=== PATIENT | female | born 1965 | race Caucasian/White ===

== ENCOUNTER 2018-08-12 06:12 | Observation (INO) | payer OTHER ==
[2018-08-11 13:51] LABS: BASOPHILS # (AUTO) 0.1 (0.0-0.1); BASOPHILS % 0.8 % (0.0-1.0); EOSINOPHILS # (AUTO) 0.1 (0.0-0.4); EOSINOPHILS % 2.4 % (0.0-6.0); HEMATOCRIT 37.6 % (34.2-44.1); HEMOGLOBIN 12.6 g/dL (12.0-16.0); LYMPHOCYTES # (AUTO) 2.3 (1.0-3.2); LYMPHOCYTES % 38.3 % (18.0-39.1); MEAN CORPUSCULAR HEMOGLOBIN 28.8 pg (28-32); MEAN CORPUSCULAR HGB CONC 33.5 g/dL (31-35); MONOCYTES # (AUTO) 0.5 (0.2-0.8); MONOCYTES % 9.1 % (4.4-11.3); NEUTROPHILS # (AUTO) 2.9 (2.1-6.9); NEUTROPHILS % 49.1 % (38.7-80.0); PLATELET COUNT 257 x10e3/uL (140-360); RED BLOOD COUNT 4.37 x10e6/uL (3.6-5.1); RED CELL DISTRIBUTION WIDTH 12.7 % (11.7-14.4)
[2018-08-11 14:03] LABS: INR 0.94; PROTHROMBIN TIME 13.4 seconds (11.9-14.5)
[2018-08-11 14:04] LABS: PARTIAL THROMBOPLASTIN TIME 28.2 seconds (23.8-35.5)
[2018-08-11 14:07] LABS: ANION GAP 12.8 mmol/L (8-16); BLOOD UREA NITROGEN 16 mg/dL (7-26); BUN/CREATININE RATIO 18 (6-25); CALCIUM 9.5 mg/dL (8.4-10.2); CARBON DIOXIDE 29 mmol/L (22-29); CHLORIDE 99 mmol/L (98-107); CREATININE, SERUM 0.88 mg/dL (0.57-1.11); EST GLOMERULAR FILTRATION RATE > 60 ML/MIN (60-); GLUCOSE 100 mg/dL (74-118); SODIUM 138 mmol/L (136-145)
[2018-08-11 14:13] LABS: POTASSIUM 2.8 mmol/L (3.5-5.1)
--- NOTE | 2018-08-11 14:35 | Diagnostic Imaging Report ---
EXAMINATION: PA and lateral views of the chest. COMPARISON: None CLINICAL HISTORY: Preoperative study DISCUSSION: Lungs are well-inflated. No consolidation, pleural effusion, or pneumothorax. Cardiomediastinal contour and pulmonary vasculature are within normal limits. No acute osseous abnormality. Circular radiodensity projecting over the lateral aspect of the left lung base likely lies within the soft tissues of the chest wall. IMPRESSION: No acute cardiopulmonary abnormalities. Signed by: Dr. Alexander Sams M.D. on 08/11/2018 2:06 PM
[~2018-08-12] VITALS: Ht 160 cm; Wt 70.8 kg
[~2018-08-12 06:12] MED LIST: CELEBREX200 MG PO; CYMBALTA30 MG PO; HYDROXYCHLOROQ200 MG PO; METAXALONE800 MG PO; TRIAMTERENE-HC1 EAC1 PO
--- OUTSIDE RECORDS SUMMARY | 2018-08-12 06:16 | XMS REPORT | Continuity of Care Document ---
Author Author [facility] Interface Address Unknown Phone Unavailable Problems Problem Status Onset Date Classification Date Reported Comments Source Epigastric pain 12/18/2017 03/20/2018 [facility] DX: R10.13=EPIGASTRIC PAIN/ABNORMAL FIND Active 12/04/2017 [facility] ABDOMINAL PAIN Active 11/02/2017 [facility] DX: 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 Active 10/15/2016 [facility] R10.9 Active 11/30/2015 [facility] Nausea 03/20/2018 [facility] Constipation, unspecified 03/20/2018 [facility] Hemangioma of other sites 03/20/2018 [facility] Personal history of colonic polyps 03/20/2018 [facility] Acquired absence of other specified parts of digestive tract 03/20/2018 [facility] Acne Resolved Problem 03/20/2018 [facility] ADD (<span ID="[id number]">Confirmed</span>) Resolved Problem 03/20/2018 [facility] Back pain Resolved Problem 03/20/2018 [facility] Acid reflux Resolved Problem 03/20/2018 [facility] 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 03/20/2018 [facility] High cholesterol Resolved Problem 03/20/2018 [facility] Hypothyroidism Resolved Problem 03/20/2018 [facility] Bladder infection Resolved Problem 03/20/2018 [facility] Depression Resolved Problem 03/20/2018 [facility] Kidney infection Resolved Problem 03/20/2018 [facility] UTI (<span ID="[id number]">Confirmed</span>) Resolved Problem 03/20/2018 [facility] Medications Medication Details Route Status Patient Instructions Ordering Provider Order Date Source Allergies, Adverse Reactions, Alerts Substance Category Reaction Severity Reaction type Status Date Reported Comments Source codeine Assertion Drug allergy Active [facility] Immunizations Immunization Date Given Site Status Last Updated Comments Source Results Order Name Results Value Reference Range Date Interpretation Comments Source CHEM PANEL eGFR 47 mL/min/1.73m2 12/13/2017 Result Comment: The eGFR is calculated using the CKD-EPI formula. In most young, healthy individuals the eGFR will be >90 mL/min/1.73m2. The eGFR declines with age. An eGFR of 60-89 may be normal in some populations, particularly the elderly, for whom the CKD-EPI formula has not been extensively validated. Use of the eGFR is not recommended in the following populations: Individuals with unstable creatinine concentrations, including patients and those with serious co-morbid conditions. Patients with extremes in muscle mass or diet. The data above are obtained from the National Kidney Disease Education Program (NKDEP) which additionally recommends that when the eGFR is used in patients with extremes of body mass index for purposes of drug dosing, the eGFR should be multiplied by the estimated BMI. [facility] CHEM PANEL POC Creatinine 1.3 mg/dL 0.5 - 1.4 12/13/2017 [facility] Abdomen w/wo contrast MRI Abdomen w/wo contrast MRI EXAM: MRI abdomen, MRCP HISTORY: Epigastric pain, nausea TECHNIQUE: Axial and coronal images obtained of the abdomen and biliary tree utilizing relative T1 and T2 weighting without and with contrast FINDINGS: Biliary tree: Cholecystectomy. No biliary dilation or stone is seen. Pancreas: Unremarkable. Other solid organs: Tiny cyst right hepatic lobe. The spleen, kidneys, and adrenal glands are unremarkable. PERITONEUM AND RETROPERITONEUM: No bulky adenopathy or free fluid. BONES: Hemangioma mid thoracic vertebral body. IMPRESSION: 1. No acute finding. 2. Cholecystectomy. SL 14 12/12/2017 - - Read by: Gamal Domingo MD Dictated Date/time: 12/12/17 23:05 Electronically Signed by: Gamal Domingo MD 12/13/17 07:35 FINAL REPORT [facility] ED Abdomen/Pelvis IV contrast only CT ED Abdomen/Pelvis IV contrast only CT Clinical Indication: Abdominal pain, acute - epigastric abdominal pain Comparison: None TECHNIQUE: Helical imaging was performed diaphragm through the symphysis with multiplanar reformations obtained. IV CONTRAST: 100cc Omnipaque 300 GI CONTRAST: No CT Radiation Dose: CYN=1297.66 mGy-cm FINDINGS: LOWER CHEST: The lung bases are clear. SOLID ORGANS: Gallbladder is surgically absent. Minimal pneumobilia incidentally noted. Liver, spleen, pancreas, adrenal glands and kidneys are unremarkable. BOWEL: Stomach and small bowel are within normal limits. The appendix is is not clearly visualized. Moderate colonic stool burden. No acute bowel obstruction. No inflammatory change. PERITONEUM: No free intraperitoneal fluid or air. RETROPERITONEUM: No pathologic adenopathy. The aorta is normal in caliber. PELVIS: No pelvic mass. The urinary bladder is normal. MUSCULOSKELETAL: No acute osseous abnormality. IMPRESSION: 1. Moderate colonic stool burden. Correlate clinically for constipation. 2. Cholecystectomy with minimal pneumobilia. 3. Otherwise no acute process identified in the abdomen or pelvis. SL: [id number] 11/02/2017 - - Read by: Real Parham MD Dictated Date/time: 11/02/17 09:46 Electronically Signed by: Real Parham MD 11/02/17 09:48 FINAL REPORT [facility] Vital Signs Vital Sign Value Date Comments Source Encounters Location Location Details Encounter Type Encounter Number Reason For Visit Attending Provider ADM Date DC Date Status Source Outpatient [id number] [facility] 07/03/2015 [facility] Outpatient [id number] [facility] 11/30/2015 [facility] Outpatient [id number] [facility] PROC ROOM 3 VISIT 11/30/2015 [facility] Outpatient [id number] CLINICAL PATH LAB VISIT 10/09/2016 [facility] Outpatient [id number] [facility] 10/27/2016 [facility] Outpatient [id number] [facility] 11/26/2016 [facility] Outpatient [id number] Porfirio Gogia 12/13/2017 12/13/2017 [facility] Procedures Procedure Code Date Perfomer Comments Source Breast procedure [id number] [facility] Cholecystocecostomy [id number] [facility] Hysterectomy [id number] [facility]
--- OUTSIDE RECORDS SUMMARY | 2018-08-12 06:16 | XMS REPORT | Clinical Summary ---
Author Author [facility] Address Unknown Phone Unavailable Care Team Providers Care Volunteer Recruitment Coordinator Name Role Phone Stephie Rodríguez MD PCP Allergies Active Allergy Reactions Severity Noted Date Comments Codeine Swelling 01/22/2017 TONGUE SWELLING Current Medications Prescription Sig. Disp. Refills Start End Date Status Date dextroamphetamine-ampheta Take 20 mg by mouth Active mine (ADDERALL) 20 mg daily. tablet thyroid, pork, (ARMOUR Take by mouth. Active THYROID) 15 mg tablet triamterene-hydrochloroth Take 1 tablet by mouth Active iazid (MAXZIDE) 75-50 mg daily. per tablet Active Problems Problem Noted Date Left upper quadrant pain 01/22/2017 Encounters Date Type Specialty Care Team Description 03/25/2018 Telephone Gastroenterology Alesha Velazco MA after 08/11/2017 Family History Medical History Relation Name Comments Diabetes Brother Cancer Father Diabetes Father Lung cancer Father Cancer Mother Ovarian cancer Mother Relation Name Status Comments Brother Father Mother Social History Tobacco Use Types Packs/Day Years Used Date Never Smoker Alcohol Use Drinks/Week oz/Week Comments Yes occasionally Sex Assigned at Date Recorded Not on file Last Filed Vital Signs Not on file Plan of Treatment Health Maintenance Due Date Last Done Comments CERVICAL CANCER SCREENING 1986 BREAST CANCER SCREENING 2015 SHINGRIX VACCINE (#1) 2015 INFLUENZA VACCINE 05/12/2018 COLON CANCER SCREENING 01/23/2020 01/22/2017 Results Not on fileafter 08/11/2017 Insurance Payer Benefit Subscriber ID Type Phone Address Plan / Group [facility] xxxxxxxxx HMO/PPO THCARE CHOICE/CHO ICE + Home: [address] [place] [id number]
--- OUTSIDE RECORDS SUMMARY | 2018-08-12 06:16 | XMS REPORT ---
[facility] Address Unknown Phone Unavailable Care Team Providers Care Affiliate Manager Name Role Phone DYANA WARD Unavailable Unavailable Payers Payer Name Policy Type Policy Number Effective Date Expiration Date Problems This patient has no known problems. Allergies, Adverse Reactions, Alerts This patient has no known allergies or adverse reactions. Medications This patient has no known medications. Results Test Description Test Time Test Comments Text Results Atomic Results Result Comments CHEST 2 VIEWS 2018-08-11 14:05:00 [place] [address] Patient Name: AQUILINO GARZA MR #: [id number] : 1965 Age/Sex: 52/F Req #: [id number] [facility] Physician: Ordered by: DYANA WARD MD Report #: [id number] Location: OR Room/Bed: Procedure: [id number] DX/CHEST 2 VIEWS Exam Date: 08/11/18 Exam Time: 1345 REPORT STATUS: Signed EXAMINATION: PA and lateral views of the chest. EMILY RISON: None CLINICAL HISTORY: Preoperative study DISCUSSION: Lungs are well-inflated. No consolidation, pleural effusion, or pneumothorax. Cardiomediastinal contour and pulmonary vasculature are within normal limits. No acute osseous abnormality. Circular radiodensity projecting over the lateral aspect of the left lung base likely lies within the soft tissues of th e chest wall. IMPRESSION: No acute cardiopulmonary abnormalities. Signed by: Dr. Eriberto Baeza M.D. on 08/11/2018 2:06 PM Dictated By: ERIBERTO BAEZA MD 140 Transcribed By: TAYLER on 08/11/18 140 COPY TO: DYANA WARD MD
--- OUTSIDE RECORDS SUMMARY | 2018-08-12 06:16 | XMS REPORT | Summary of Care ---
Author Author [facility] Organization [facility] Address Unknown Phone Unavailable Encounter [facility]([place]) [id number] Date(s): 12/12/17 - 12/12/17 [facility] [address] [place] [address]- Encounter Diagnosis Epigastric pain (Final) - 12/17/17 Nausea (Final) - Constipation, unspecified (Final) - Hemangioma of other sites (Final) - Personal history of colonic polyps (Final) - Acquired absence of other specified parts of digestive tract (Final) - Discharge Disposition: Home or Self Care Attending Physician: Porfirio Nation MD Referring Physician: Porfirio Nation MD Vital Signs No data available for this section Problem List Condition Effective Dates Status Health Status Informant Acne(Confirmed) Resolved ADD (attention Resolved deficit disorder)(Confirmed) Back pain(Confirmed) Resolved Acid Resolved reflux(Confirmed) 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) High Resolved cholesterol(Confirme d) Hypothyroidism(Confi Resolved rmed) Bladder Resolved infection(Confirmed) Depression(Confirmed Resolved ) Kidney Resolved infection(Confirmed) UTI (urinary tract Resolved infection)(Confirmed ) Allergies, Adverse Reactions, Alerts Substance Reaction Severity Status codeine Active Medications No data available for this section Results CHEM PANEL Most recent to 1 oldest [Reference Range]: eGFR 47 mL/min/1.73m2 1 *NA* (12/12/17 8:23 PM) POC Creatinine 1.3 mg/dL [0.5-1.4 mg/dL] (12/12/17 8:23 PM) 1Result Comment: The eGFR is calculated using the [...] from the National Kidney Disease Education Program ( NKDEP) which additionally recommends that when the eGFR is used in patients with extremes of body mass index for purposes of drug dosing, the eGFR should be mul tiplied by the estimated BMI. Immunizations No data available for this section Procedures Procedure Date Related Diagnosis Body Site Status Breast procedure Completed Cholecystocecostomy Completed Hysterectomy Completed Social History Social History Type Response Smoking Status Never smoker; Exposure to Tobacco Smoke None; Cigarette Smoking Last 365 Days No; Reg Smoking Cessation Counseling No entered on: 11/02/17 Assessment and Plan No data available for this section
[2018-08-12] MEDS ORDERED: BUPIVACAINE 0.5%/EPI 30 ML SDV INJ ONE (06:42)
[2018-08-12] MEDS ORDERED: GELATIN SPONGE 12-7MM ONE (06:42)
[2018-08-12] MEDS ORDERED: THROMBIN FOR SOLN 5,000 UNIT VIAL ONE (06:42)
[2018-08-12] MEDS ORDERED: BACITRACIN 50,000 UNIT VIAL ONE (06:42)
[2018-08-12] MEDS ORDERED: LIDOCAINE HCL (LTA) 4 ML SOLN ONE (07:08)
[2018-08-12] MEDS ORDERED: ACETAMINOPHEN 1000 MG/100 ML 100 ML IV ONE (07:08)
[2018-08-12] MEDS ORDERED: CEFAZOLIN SOD 1 GM VIAL ONE (07:10)
[2018-08-12] MEDS ORDERED: SCOPOLAMINE 1.5 MG PATCH ONE (09:01)
[2018-08-12] MEDS ORDERED: LACTATED RINGER'S 1,000 ML IV SCH (10:04)
[2018-08-12] MEDS ORDERED: NON-FORMULARY MEDICATION (Celecoxib (Celebrex) 200 MG) PO SCH (10:15)
[2018-08-12] MEDS ORDERED: ONDANSETRON HCL INJ 2 MG/ML VIAL IV PRN (10:15)
[2018-08-12] MEDS ORDERED: MAGNESIUM/ALUMINUM/SIMETHICONE 30 ML UDC PO PRN (10:15)
[2018-08-12] MEDS ORDERED: CARISOPRODOL 350 MG TAB PO PRN (10:15)
[2018-08-12] MEDS ORDERED: MORPHINE SULFATE 5 MG/ML VIAL IM PRN (10:15)
[2018-08-12] MEDS ORDERED: CEPACOL SORE THROAT LOZENGES PO PRN (10:15)
[2018-08-12] MEDS ORDERED: ZOLPIDEM TARTRATE 5 MG TAB PO PRN (10:15)
[2018-08-12] MEDS ORDERED: PROMETHAZINE HCL (IM) 25 MG/ML VIAL IM PRN (10:15)
[2018-08-12] MEDS ORDERED: ACETAMINOPHEN 325 MG TAB PO PRN (10:15)
--- OUTSIDE RECORDS SUMMARY | 2018-08-12 10:19 | XMS REPORT | Clinical Summary ---
Author Author [facility] Address Unknown Phone Unavailable Care Team Providers Care Plate Keeper Name Role Phone Stephie Rodríguez MD PCP [...] ID Type Phone Address Plan / Group [facility] xxxxxxxxx HMO/PPO THCARE CHOICE/CHO ICE + Home: [address] [place] [id number]
[2018-08-12] MEDS ORDERED: FENTANYL CITRATE/PF 100MCG/2 ML INJ ONE ×2 (10:46→15:22)
[2018-08-12 11:44] VITALS: BP 109/59
--- NOTE | 2018-08-12 11:47 | Operative Report ---
DATE OF PROCEDURE: August 12, 2018 PREOPERATIVE DIAGNOSIS: Severe L4-L5 spinal stenosis with left L5 radiculopathy, M48.062. POSTOPERATIVE DIAGNOSIS: Severe L4-L5 spinal stenosis with left L5 radiculopathy, M48.062. PROCEDURES 1. L4 bilateral decompressive laminectomy and L4-5 bilateral medial facetectomy, 46509. 2. L5 bilateral partial decompressive laminectomy, 83657. ANESTHESIA: General. INDICATIONS: Patient is a 52-year-old woman who presents with severe L4-5 spinal stenosis with intractable left L5 radiculopathy. She was taken to the operating room for decompression of the L4-5 segment. PROCEDURE: After the induction of general anesthesia, the patient was placed on the operating table in prone position over a Gustavo frame. The lumbar region was prepped and draped in sterile fashion. A preoperative x-ray was obtained. A small midline incision was created. Lumbar fascia was opened along the midline, and dissection was carried out to expose the spinous processes and laminae of L4 and L5 and the medial aspect of the hypertrophic facet joints bilaterally. A 2nd x-ray confirmed correct localization. Portions of the spinous processes were resected. The Aesculap expandable speculum retractor was used to maintain retraction. The operating microscope was brought in. A high-speed drill equipped with a donaldo bur was used to drill the inferior two-thirds of the lamina of L4, the superior one-third of the lamina of L5 and the medial aspect of the hypertrophic L4-5 facet joints, with particular attention given to the left side. The markedly hypertrophic ligamentum flavum was resected, and the dural sac and the L5 traversing nerve roots were fully exposed and decompressed. On the nerve side, the nerve root was retracted medially, and the epidural veins were bipolar coagulated and divided with the microscissors. The underlying L4-5 disk was thoroughly examined. It had a very mild disk bulge, but there was no true disk herniation and no significant compression of the L5 nerve root from a ventral orientation. Therefore, a diskectomy was not performed. Excellent decompression had been achieved by virtue of the laminectomy. Meticulous hemostasis was secured. The wound was irrigated with Bacitracin solution and closed in multiple layers with #0 and 2-0 Vicryl sutures. The skin was closed with 3-0 Monocryl sutures in subcuticular fashion. Steri-Strips and dressing were applied. The patient was awakened, extubated and taken to the postanesthesia care unit in stable condition. No intraoperative complications were encountered. Estimated blood loss was 10 mL. Job#: [id number]
[2018-08-12 11:48] VITALS: BP 109/59
[2018-08-12] MEDS: HYDROMORPHONE 2MG/ML 2 MG/ML ML IV PRN ×2 (12:33→19:46)
[2018-08-12] MEDS ORDERED: CEFAZOLIN SOD 1 GM/D5W 50ML 50 ML IV SCH (14:00)
[2018-08-12 14:30] VITALS: BP 109/59
[2018-08-12] MEDS: CEFAZOLIN SOD 1 GM VIAL IV SCH ×2 (14:30→22:10)
[2018-08-12] MEDS ORDERED: MORPHINE SULFATE INJ 10 MG/ML IM PRN (15:00)
[2018-08-12] MEDS ORDERED: LIDOCAINE HCL 2% LOCAL INJ 5 ML SDV VIAL INJ ONE (15:22)
[2018-08-12] MEDS ORDERED: MIDAZOLAM HCL 2 MG/2 ML VIAL ONE (15:22)
[2018-08-12] MEDS ORDERED: ONDANSETRON HCL INJ 2 MG/ML VIAL ONE (15:22)
[2018-08-12] MEDS ORDERED: EPHEDRINE SULFATE INJ 50 MG/10 ML SYR ONE (15:22)
[2018-08-12] MEDS ORDERED: DESFLURANE 240 ML BTL INH ONE (15:22)
[2018-08-12] MEDS ORDERED: DEXAMETHASONE SOD PHOS INJ 4 MG/ML VIAL ONE (15:22)
[2018-08-12] MEDS ORDERED: PROPOFOL IV EMULSION 10 MG/ML 20 ML VIAL ONE (15:22)
[2018-08-12] MEDS ORDERED: ROCURONIUM BROMIDE 10 MG/ML 5ML VIAL ONE (15:22)
[2018-08-12 15:50] VITALS: BP 99/55
[2018-08-12 20:00] VITALS: BP 89/53
[2018-08-12] MEDS ORDERED: METAXALONE 800 MG TAB PO SCH (21:00)
[2018-08-12] MEDS: DIPHENHYDRAMINE HCL 25 MG CAP PO PRN (22:01)
[2018-08-12] MEDS: OXYCODONE/ACETAMINOPHEN 5-325 1 EACH TABLET PO PRN (23:41)
[2018-08-13] VITALS: BP 93/52
[2018-08-13] MEDS: OXYCODONE/ACETAMINOPHEN 5-325 1 EACH TABLET PO PRN (00:56)
[2018-08-13 04:00] VITALS: BP 92/53
[2018-08-13] MEDS: CEFAZOLIN SOD 1 GM VIAL IV SCH (06:03)
[2018-08-13] MEDS: HYDROMORPHONE 2MG/ML 2 MG/ML ML IV PRN (07:27)
[2018-08-13] MEDS ORDERED: NORCO 7.5-3251 EACH PO (07:56)
[2018-08-13 08:59] VITALS: BP 92/53
[2018-08-13] MEDS: DIPHENHYDRAMINE HCL 25 MG CAP PO PRN (08:59)
[2018-08-13] MEDS ORDERED: DIPHENHYDRAMINE HCL INJ 50 MG/ML VIAL IV NR (09:00)
[2018-08-13] MEDS ORDERED: TRIAMTERENE/HCTZ 37.5-25 MG TAB PO SCH (09:00)
[2018-08-13] MEDS ORDERED: HYDROXYCHLOROQUINE SULFATE 200 MG TAB PO SCH (09:00)
[2018-08-13] MEDS ORDERED: DULOXETINE HCL 30 MG DELAYED RELEASE PO SCH (09:00)
[2018-08-13] MEDS ORDERED: DIPHENHYDRAMINE HCL INJ 50 MG/ML VIAL IV PRN (09:00)
[2018-08-13 09:10] VITALS: BP 95/55
== END 2018-08-13 09:37 | disposition home or self-care (01) ==
LOC: OR 06:12 → PACU V 10:06 → MED/SURG 11:17
PROVIDERS: ADMIT Neurological Surgery; ATTEND Neurological Surgery
DX: M48.062 Spinal stenosis, lumbar region with neurogenic claudication (principal); Z01.810 Encounter for preprocedural cardiovascular examination; Z01.812 Encounter for preprocedural laboratory examination; Z01.811 Encounter for preprocedural respiratory examination
CPT/HCPCS: 36415 ×2; 63047; 63048; 71046; 72020; 80048; 84132; 85025; 85610; 85730; 86850; 86900; 88304; 88311; 93005; G0378 ×2; J0131; J0690 ×2; J1100; J1170 ×2; J1200; J2001; J2250; J2405 ×2; J2704; J7120; J2270

== ENCOUNTER → 2018-08-27 | Outpatient (CLI) | payer OTHER ==
[~2018-08-27] MED LIST changes: +NORCO 7.5-3251 EACH PO
[2018-08-27 17:25] LABS: HEMATOCRIT 33.5 % (34.2-44.1); HEMOGLOBIN 11.3 g/dL (12.0-16.0); MEAN CORPUSCULAR HEMOGLOBIN 28.8 pg (28-32); MEAN CORPUSCULAR HGB CONC 33.7 g/dL (31-35); MEAN CORPUSCULAR VOLUME 85.2 fL (81-99); PLATELET COUNT 268 x10e3/uL (140-360); RED BLOOD COUNT 3.93 x10e6/uL (3.6-5.1); RED CELL DISTRIBUTION WIDTH 12.5 % (11.7-14.4)
[2018-08-27 19:27] LABS: LYMPHOCYTES % (MANUAL) 10 % (19-48); MONOCYTES % (MANUAL) 8 % (3.4-9.0); NEUTROPHILS % (MANUAL) 80 % (40-74); PLATELET ESTIMATE ADEQUATE; PLATELET MORPHOLOGY COMMENT NORMAL; RBC MORPHOLOGY COMMENT NORMAL
== END ==
LOC: LAB 16:44
PROVIDERS: ATTEND Neurological Surgery
DX: M48.062 Spinal stenosis, lumbar region with neurogenic claudication (principal)
CPT/HCPCS: 36415; 85007; 85027

== ENCOUNTER 2019-06-30 05:13 | Observation (INO) | payer OTHER ==
--- NOTE | 2019-06-29 12:14 | Diagnostic Imaging Report ---
EXAM: CHEST 2 VIEWS DATE: 06/29/2019 11:23 AM INDICATION: Preoperative evaluation, cervicalgia COMPARISON: 08/11/2018 FINDINGS: The trachea is midline. The lungs are symmetrically expanded without evidence for large focal consolidation, pneumothorax, or significant pleural effusion. The cardiomediastinal silhouette and pulmonary vasculature are within normal limits. No acute osseous abnormality is identified. The surrounding soft tissues are unremarkable. IMPRESSION: No acute cardiopulmonary process identified. Signed by: Dr. Dillon Frankel MD on 06/29/2019 12:11 PM
[2019-06-29 12:44] LABS: BASOPHILS % 0.6 % (0.0-1.0); EOSINOPHILS # (AUTO) 0.1 (0.0-0.4); HEMATOCRIT 35.7 % (34.2-44.1); HEMOGLOBIN 11.7 g/dL (12.0-16.0); LYMPHOCYTES % 31.1 % (18.0-39.1); MEAN CORPUSCULAR HEMOGLOBIN 28.3 pg (28-32); MEAN CORPUSCULAR HGB CONC 32.8 g/dL (31-35); MEAN CORPUSCULAR VOLUME 86.2 fL (81-99); MONOCYTES # (AUTO) 0.5 (0.2-0.8); MONOCYTES % 8.1 % (4.4-11.3); NEUTROPHILS # (AUTO) 3.7 (2.1-6.9); NEUTROPHILS % 57.7 % (38.7-80.0); PLATELET COUNT 234 x10e3/uL (140-360); RED BLOOD COUNT 4.14 x10e6/uL (3.6-5.1); RED CELL DISTRIBUTION WIDTH 12.6 % (11.7-14.4)
[2019-06-29 12:51] LABS: INR 0.93; PARTIAL THROMBOPLASTIN TIME 28.2 seconds (23.8-35.5)
[2019-06-29 12:56] LABS: ANION GAP 15.4 mmol/L (8-16); CALCIUM 9.8 mg/dL (8.4-10.2); POTASSIUM 3.4 mmol/L (3.5-5.1)
[~2019-06-30] VITALS: Ht 160 cm; Wt 66.5 kg
[~2019-06-30 05:13] MED LIST changes: +ACETAMINOPHN-B1 EACH PO; +ARMOUR THYROID60 MG PO; +DIFLUNISAL500 MG PO; +POTASSIUM PO
--- OUTSIDE RECORDS SUMMARY | 2019-06-30 05:35 | XMS REPORT | Clinical Summary ---
Author Author [facility] Address Unknown Phone Unavailable Care Team Providers Care Fiber Optics Technician Name Role Phone Stephie Rodríguez MD PCP Allergies Comments Active Allergy Reactions Severity Noted Date TONGUE SWELLING Codeine Swelling 01/22/2017 Medications End Date Status Medication Sig Dispensed Refills Start Date Active dextroamphetamine-ampheta Take 20 mg by 0 mine (ADDERALL) 20 mg mouth daily. tablet Active thyroid, pork, (ARMOUR Take by 0 THYROID) 15 mg tablet mouth. Active triamterene-hydrochloroth Take 1 tablet 0 iazid (MAXZIDE) 75-50 mg by mouth per tablet daily. Active Problems Problem Noted Date Left upper quadrant pain 01/22/2017 Family History Medical History Relation Name Comments Diabetes Brother Cancer Father Diabetes Father Lung cancer Father Cancer Mother Ovarian cancer Mother Relation Name Status Comments Brother Father Mother Social History Date Tobacco Use Types Packs/Day Years Used Never Smoker Drinks/Week oz/Week Comments Alcohol Use occasionally Yes Sex Assigned at Date Recorded Not on file Industry Job Start Date Occupation Not on file Not on file Not on file Travel End Travel History Travel Start No recent travel history available. Last Filed Vital Signs Not on file Plan of Treatment Health Maintenance Due Date Last Done Comments CERVICAL CANCER SCREENING 1986 BREAST CANCER SCREENING 2015 SHINGLES VACCINES (#1) 2015 INFLUENZA VACCINE 05/12/2019 COLONOSCOPY SCREENING 01/23/2020 01/22/2017 Results Not on fileafter 06/29/2018 Insurance Type Payer Benefit Subscriber ID Effective Phone Address Plan / Dates Group HMO/PPO 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
--- OUTSIDE RECORDS SUMMARY | 2019-06-30 05:36 | XMS REPORT | Continuity of Care Document ---
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 w/wo contrast MRI EXAM: MRI abdomen, [...] IMPRESSION: 1. No acute finding. 2. Cholecystectomy. BOY 14 12/12/2017 [facility] ED Abdomen/Pelvis IV contrast only CT Clinical Indication: Abdominal pain, acute - epigastric abdominal pain Comparison: None TECHNIQUE: Helical imaging was performed diaphragm through the symphysis with multiplanar reformations obtained. IV CONTRAST: 100cc Omnipaque 300 GI CONTRAST: No CT Radiation Dose: XTY=1000.66 mGy-cm FINDINGS: LOWER CHEST: The lung bases [...] identified in the abdomen or pelvis. SL: [id number] 11/02/2017 [facility] Consultation Notes No Data Provided for This Section Discharge Summaries No Data Provided for This Section History and Physicals No Data Provided for This Section Vital Signs Vital Sign Value Date Comments Source Temperature Oral (F) 98 F 06/24/2019 [facility] Respitory Rate 16 06/24/2019 [facility] Systolic (mm Hg) 102 06/24/2019 [facility] Diastolic (mm Hg) 70 06/24/2019 [facility] Respitory Rate 16 06/24/2019 [facility] Systolic (mm Hg) 99 06/24/2019 [facility] Diastolic (mm Hg) 62 06/24/2019 [facility] Respitory Rate 14 06/24/2019 [facility] Systolic (mm Hg) 91 06/24/2019 [facility] Diastolic (mm Hg) 60 06/24/2019 [facility] Temperature Oral (F) 98.1 F 06/24/2019 [facility] Temperature Oral (F) 97.9 F 06/24/2019 [facility] Heart Rate 88 06/24/2019 [facility] Heart Rate 74 06/24/2019 [facility] Temperature Oral (F) 98.1 F 06/24/2019 [facility] Heart Rate 71 06/24/2019 [facility] Respitory Rate 17 06/24/2019 [facility] Systolic (mm Hg) 111 06/24/2019 [facility] Diastolic (mm Hg) 84 06/24/2019 [facility] Temperature Oral (F) 98 F 06/24/2019 [facility] Respitory Rate 18 06/24/2019 [facility] Systolic (mm Hg) 102 06/24/2019 [facility] Diastolic (mm Hg) 59 06/24/2019 [facility] Heart Rate 63 06/24/2019 [facility] Systolic (mm Hg) 125 06/24/2019 [facility] Diastolic (mm Hg) 81 06/24/2019 [facility] Heart Rate 89 06/24/2019 [facility] Respitory Rate 16 06/24/2019 [facility] Temperature Oral (F) 97.9 F 06/24/2019 [facility] Weight 67 06/24/2019 [facility] Height 160.02 cm 03/15/[facility] BMI Calculated 25.63 03/15/2019 [facility] Weight 65.625 03/15/[facility] Heart Rate 81 03/15/2019 [facility] Systolic (mm Hg) 109 03/15/[facility] Diastolic (mm Hg) 74 03/15/[facility] Temperature Oral (F) 98.5 F 02/07/2019 [facility] Heart Rate 72 02/07/2019 [facility] Respitory Rate 16 02/07/2019 [facility] Systolic (mm Hg) 113 02/07/2019 [facility] Diastolic (mm Hg) 80 02/07/2019 [facility] Heart Rate 93 02/07/2019 [facility] Respitory Rate 18 02/07/2019 [facility] Systolic (mm Hg) 100 02/07/2019 [facility] Diastolic (mm Hg) 70 02/07/2019 [facility] Weight 65.909 02/07/2019 [facility] BMI Calculated 25.74 02/07/2019 [facility] Height 160.02 cm 02/07/2019 [facility] Temperature Oral (F) 98.8 F 02/07/2019 [facility] Systolic (mm Hg) 121 12/04/2018 [facility] Diastolic (mm Hg) 72 12/04/2018 [facility] Temperature Oral (F) 98.6 F 12/04/2018 [facility] Heart Rate 87 12/04/2018 [facility] Respitory Rate 19 12/04/2018 [facility] Height 160.02 cm 12/04/2018 [facility] BMI Calculated 25.74 12/04/2018 [facility] Weight 65.909 12/04/2018 [facility] Temperature Oral (F) 98.1 F 12/04/2018 [facility] Systolic (mm Hg) 123 12/04/2018 [facility] Diastolic (mm Hg) 78 12/04/2018 [facility] Heart Rate 81 12/04/2018 [facility] Respitory Rate 17 12/04/2018 [facility] Encounters Location Location Details Encounter Type Encounter Number Reason For Visit Attending Provider ADM Date DC Date Status Source Outpatient [id number] [facility] 07/03/2015 [facility] Outpatient [id number] [facility] PROC ROOM 3 VISIT 11/30/2015 [facility] Outpatient [id number] [facility] 11/30/2015 [facility] Outpatient [id number] CLINICAL PATH LAB VISIT 10/09/2016 [facility] Outpatient [id number] [facility] 10/27/2016 [facility] Outpatient [id number] [facility] 11/26/2016 [facility] Outpatient [id number] Porfirio Nation 12/13/2017 12/13/2017 [facility] Emergency [id number] Pierce Schmidt 12/04/2018 12/04/2018 [facility] Emergency [id number] Sapphire Hesterqi 02/07/2019 02/07/2019 [facility] Outpatient [id number] [facility] 03/15/2019 [facility] Urology [facility] Outpatient [id number] [facility] 03/15/2019 03/16/2019 [facility] Emergency [id number] Ezio Carbajal 06/24/2019 06/24/2019 [facility] Emergency [id number] Vahid Allenter 06/24/2019 06/24/2019 [facility] Outpatient [id number] [facility] 03/14/2020 [facility] Procedures Procedure Code Date Perfomer Comments Source Measurement of post-voiding residual urine and/or bladder capacity by ultrasound, non-imaging [id number] 03/15/2019 [facility] Breast procedure [id number] [facility] Cholecystocecostomy [id number] Hysterectomy [id number] [facility] Assessment and Plan No Data Provided for This Section Plan of Care No Data Provided for This Section Social History Social History Date Source Social History TypeResponse Smoking Status Never smoker; Type: Cigarettes; Exposure to Tobacco Smoke None; Cigarette Smoking Last 365 Days No; Reg Smoking Cessation Counseling Yes entered on: 06/24/19 06/24/2019 [facility] Social History TypeResponse Smoking Status Never smoker; Type: Cigarettes; Exposure to Tobacco Smoke None; Cigarette Smoking Last 365 Days No; Reg Smoking Cessation Counseling Yes entered on: 06/24/19 06/24/2019 [facility] Social History TypeResponse Smoking Status Never smoker; Type: Cigarettes; Exposure to Tobacco Smoke None; Cigarette Smoking Last 365 Days No; Reg Smoking Cessation Counseling No entered on: 03/15/19 03/15/[facility] Social History TypeResponse Smoking Status Never smoker; Exposure to Tobacco Smoke None; Cigarette Smoking Last 365 Days No; Reg Smoking Cessation Counseling No entered on: 02/07/19 02/07/2019 [facility] Family History No Data Provided for This Section Advance Directives No Data Provided for This Section Functional Status No Data Provided for This Section
--- OUTSIDE RECORDS SUMMARY | 2019-06-30 05:36 | XMS REPORT | Summary of Care ---
Author Author [facility] Organization [facility] Address Unknown Phone Unavailable Encounter HQ Viola(FIN) [id number] Date(s): 02/06/19 - 02/07/19 [facility] [address] [place] [address]- Encounter Diagnosis Generalized weakness (Discharge Diagnosis) - 02/07/19 Acute headache (Discharge Diagnosis) - 02/07/19 Discharge Disposition: Home or Self Care Attending Physician: Sapphire Mathew DO Vital Signs Most recent to 1 2 oldest [Reference Range]: Height 160.02 cm (02/06/19 9:07 PM) Temperature Oral 98.5 DegF 98.8 DegF [96.4-99.1 DegF] (02/07/19 3:00 AM) (02/06/19 9:07 PM) Blood Pressure 113/80 mmHg 100/70 mmHg [90-140/60-90 mmHg] (02/07/19 3:00 AM) (02/06/19 9:07 PM) Respiratory Rate 16 BRMIN 18 BRMIN [14-20 BRMIN] (02/07/19 3:00 AM) (02/06/19 9:07 PM) Peripheral Pulse 72 bpm 93 bpm Rate [60-100 bpm] (02/07/19 3:00 AM) (02/06/19 9:07 PM) Weight 65.909 kg (02/06/19 9:07 PM) Body Mass Index 25.74 m2 (02/06/19 9:07 PM) Problem List Condition Effective Dates Status Health Status Informant Acne(Confirmed) Resolved ADD (attention Resolved deficit disorder)(Confirmed) Back pain(Confirmed) Resolved Acid Resolved reflux(Confirmed) 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) High Resolved cholesterol(Confirme d) Hypothyroidism(Confi Resolved rmed) Bladder Resolved infection(Confirmed) Depression(Confirmed Resolved ) Kidney Resolved infection(Confirmed) UTI (urinary tract Resolved infection)(Confirmed ) Allergies, Adverse Reactions, Alerts Substance Reaction Severity Status codeine Active Medications dexamethasone 10 mg, Route: IVP, ONCE, Dosing Weight 65.909, kg, Start date: 02/07/19 3:55:00 CDT, Stop date: 02/07/19 3:55:00 CDT Start Date: 02/07/19 Stop Date: 02/07/19 Status: Completed dexamethasone 4 mg, Route: IVP, ONCE, Dosing Weight 65.909, kg, Priority: STAT, Start date: 3:55:00 CDT, Stop date: 02/07/19 3:55:00 CDT Start Date: 02/07/19 Stop Date: 02/07/19 Status: Discontinued metoclopramide 10 mg, Route: IVP, Drug form: INJ, ONCE, Dosing Weight 65.909, kg, Priority: STA T, Start date: 02/07/19 3:55:00 CDT, Stop date: 02/07/19 3:55:00 CDT Start Date: 02/07/19 Stop Date: 02/07/19 Status: Completed Sodium Chloride 0.9% (Bolus) IV 1,000 mL, Infuse Over: 1 hr, Route: IV, ONCE, Priority: STAT, Dosing Weight 65.9 09 kg, Start date: 02/07/19 3:55:00 CDT, Stop date: 02/07/19 3:55:00 CDT Start Date: 02/07/19 Stop Date: 02/07/19 Status: Completed Results Most recent to 1 oldest [Reference Range]: Neutrophils # 3.1 K/CMM [1.5-8.1 K/CMM] (02/07/19 3:35 AM) Lymphocytes # 2.0 K/CMM [1.0-5.5 K/CMM] (02/07/19 3:35 AM) Monocytes # [0.0-0.8 0.5 K/CMM K/CMM] (02/07/19 3:35 AM) Eosinophils # 0.1 K/CMM [0.0-0.5 K/CMM] (02/07/19 3:35 AM) eGFR 59 mL/min/1.73m2 1 *NA* (02/07/19 3:35 AM) AGAP [10.0-20.0 11.5 mEq/L mEq/L] (02/07/19 3:35 AM) Basophils [0.0-1.0 0.4 % %] (02/07/19 3:35 AM) BUN [7-22 mg/dL] 20 mg/dL (02/07/19 3:35 AM) Calcium Lvl 9.6 mg/dL [8.5-10.5 mg/dL] (02/07/19 3:35 AM) Chloride Lvl [95-109 98 mEq/L mEq/L] (02/07/19 3:35 AM) CO2 [24-32 mEq/L] 32 mEq/L (02/07/19 3:35 AM) Creatinine Lvl 1.08 mg/dL [0.50-1.40 mg/dL] (02/07/19 3:35 AM) Eosinophils [0.0-4.0 1.2 % %] (02/07/19 3:35 AM) Glucose Lvl [70-99 95 mg/dL mg/dL] (02/07/19 3:35 AM) Hct [36.0-48.0 %] 39.2 % (02/07/19 3:35 AM) Hgb [12.0-16.0 g/dL] 12.9 g/dL (02/07/19 3:35 AM) Potassium Lvl 3.5 mEq/L [3.5-5.1 mEq/L] (02/07/19 3:35 AM) Lymphocytes 35.5 % [20.0-40.0 %] (02/07/19 3:35 AM) MCH [27.0-31.0 pg] 28.6 pg (02/07/19 3:35 AM) MCHC [32.0-36.0 33.0 g/dL g/dL] (02/07/19 3:35 AM) MCV [80.0-98.0 fL] 86.6 fL (02/07/19 3:35 AM) Monocytes [2.0-12.0 8.8 % %] (02/07/19 3:35 AM) MPV [7.4-10.4 fL] 8.0 fL (02/07/19 3:35 AM) Sodium Lvl [135-145 138 mEq/L mEq/L] (02/07/19 3:35 AM) Platelet [133-450 212 K/CMM K/CMM] (02/07/19 3:35 AM) Segs [45.0-75.0 %] 54.1 % (02/07/19 3:35 AM) RBC [4.20-5.40 4.53 M/CMM M/CMM] (02/07/19 3:35 AM) RDW [11.5-14.5 %] 14.1 % (02/07/19 3:35 AM) Troponin-I <0.02 ng/mL [0.00-0.40 ng/mL] (02/07/19 3:35 AM) UA Bili [Negative] Negative *NA* (02/07/19 3:35 AM) UA Blood [Negative] Negative (02/07/19 3:35 AM) UA Color Ltyellow *NA* (02/07/19 3:35 AM) UA Glucose [Negative Negative mg/dL mg/dL] *NA* (02/07/19 3:35 AM) UA Ketones [Negative Negative mg/dL mg/dL] *NA* (02/07/19 3:35 AM) UA Leuk Est Small [Negative] *ABN* (02/07/19 3:35 AM) UA Nitrite Negative [Negative] (02/07/19 3:35 AM) UA pH [5.0-8.0] 7.0 (02/07/19 3:35 AM) UA Protein [Negative Negative mg/dL mg/dL] (02/07/19 3:35 AM) UA RBC [0-2 /HPF] 1 /HPF (02/07/19 3:35 AM) UA Spec Grav 1.010 [<=1.030] (02/07/19 3:35 AM) UA Sq Epi [Few /LPF] Occasional /LPF *NA* (02/07/19 3:35 AM) UA Turbidity [Clear] Clear (02/07/19 3:35 AM) UA Urobilinogen <=1.0 mg/dL [0.1-1.0 mg/dL] *NA* (02/07/19 3:35 AM) UA WBC [0-5 /HPF] 3 /HPF (02/07/19 3:35 AM) WBC [3.7-10.4 K/CMM] 5.7 K/CMM (02/07/19 3:35 AM) 1Result Comment: The eGFR is calculated using [...] Smoking Cessation Counseling No entered on: 02/07/19 Assessment and Plan No data available for this section
--- OUTSIDE RECORDS SUMMARY | 2019-06-30 05:36 | XMS REPORT | Summary of Care ---
Author Author [facility] Organization [facility] Address Unknown Phone Unavailable Encounter HQ Viola(FIN) [id number] Date(s): 06/23/19 - 06/24/19 [facility] [address] [place] [address]- [facility] [phone] Discharge Disposition: Home or Self Care Attending Physician: Ezio Carbajal MD Vital Signs 1 2 3 Most recent to oldest [Reference Range]: 98.1 DegF (06/24/19 4:44 AM) 98 DegF (06/24/19 3:15 AM) 97.9 DegF (06/23/19 8:18 PM) Temperature Oral [96.4-99.1 DegF] 111/84 mmHg (06/24/19 4:44 AM) 102/59 mmHg (06/24/19 3:15 AM) 125/81 mmHg (06/23/19 8:18 PM) Blood Pressure [90-140/60-90 mmHg] 17 BRMIN (06/24/19 4:44 AM) 18 BRMIN (06/24/19 3:15 AM) 16 BRMIN (06/23/19 8:18 PM) Respiratory Rate [14-20 BRMIN] 71 bpm (06/24/19 4:44 AM) 63 bpm (06/24/19 3:15 AM) 89 bpm (06/23/19 8:18 PM) Peripheral Pulse Rate [60-100 bpm] 67 kg (06/23/19 8:18 PM) Weight Problem List Condition Effective Dates Status Health Status Informant Acne(Confirmed) Resolved ADD (attention Resolved deficit disorder)(Confirmed) Back pain(Confirmed) Resolved Acid Resolved reflux(Confirmed) 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) High Resolved cholesterol(Confirme d) Hypothyroidism(Confi Resolved rmed) Bladder Resolved infection(Confirmed) Depression(Confirmed Resolved ) Kidney Resolved infection(Confirmed) UTI (urinary tract Resolved infection)(Confirmed ) Allergies, Adverse Reactions, Alerts Substance Reaction Severity Status codeine Active Medications acetaminophen-hydrocodone 325 mg-5 mg oral tablet 1 tab, Route: PO, Drug Form: TAB, Dosing Weight 67, kg, ONCE, STAT, Start date: 06/24/19 3:43:00 CDT, Stop date: 06/24/19 3:43:00 CDT Start Date: 06/24/19 Stop Date: 06/24/19 Status: Completed morphine Sulfate 4 mg, 1 mL, Route: IVP, Drug form: SOLN, ONCE, Dosing Weight 67, kg, Priority: S TAT, Start date: 06/24/19 0:01:00 CDT, Stop date: 06/24/19 0:01:00 CDT, 0 Notes: (Same as:MORPhine Sulfate) Start Date: 06/24/19 Stop Date: 06/24/19 Status: Completed ondansetron 4 mg, Route: IVP, Drug form: INJ, ONCE, Dosing Weight 67, kg, Priority: STAT, St art date: 06/24/19 0:33:00 CDT, Stop date: 06/24/19 0:33:00 CDT Start Date: 06/24/19 Stop Date: 06/24/19 Status: Completed ondansetron 4 mg, Route: IVP, Drug form: INJ, ONCE, Dosing Weight 67, kg, Priority: STAT, St art date: 06/24/19 4:46:00 CDT, Stop date: 06/24/19 4:46:00 CDT Start Date: 06/24/19 Stop Date: 06/24/19 Status: Completed Results Most recent to 1 oldest [Reference Range]: Neutrophils # 3.7 K/CMM [1.5-8.1 K/CMM] (06/23/19 9:47 PM) Lymphocytes # 3.1 K/CMM [1.0-5.5 K/CMM] (06/23/19 9:47 PM) Monocytes # [0.0-0.8 0.6 K/CMM K/CMM] (06/23/19 9:47 PM) Eosinophils # 0.2 K/CMM [0.0-0.5 K/CMM] (06/23/19 9:47 PM) Basophils # [0.0-0.2 0.1 K/CMM K/CMM] (06/23/19 9:47 PM) eGFR 49 mL/min/1.73m2 1 *NA* (06/23/19 9:47 PM) AGAP [10.0-20.0 8.5 mEq/L mEq/L] *LOW* (06/23/19 9:47 PM) Basophils [0.0-1.0 0.7 % %] (06/23/19 9:47 PM) BUN [7-22 mg/dL] 25 mg/dL *HI* (06/23/19:47 PM) Calcium Lvl 9.3 mg/dL [8.5-10.5 mg/dL] (06/23/19 9:47 PM) Chloride Lvl [95-109 105 mEq/L mEq/L] (06/23/19 9:47 PM) CO2 [24-32 mEq/L] 30 mEq/L (06/23/19:47 PM) Creatinine Lvl 1.26 mg/dL [0.50-1.40 mg/dL] (06/23/19 9:47 PM) Eosinophils [0.0-4.0 2.3 % %] (06/23/19 9:47 PM) Glucose Lvl [70-99 101 mg/dL mg/dL] *HI* (06/23/19 9:47 PM) Hct [36.0-48.0 %] 35.2 % *LOW* (06/23/19 9:47 PM) Hgb [12.0-16.0 g/dL] 12.5 g/dL (06/23/19 9:47 PM) Potassium Lvl 3.5 mEq/L [3.5-5.1 mEq/L] (06/23/19 9:47 PM) Lymphocytes 40.5 % [20.0-40.0 %] *HI* (06/23/19 9:47 PM) MCH [27.0-31.0 pg] 29.5 pg (06/23/19 9:47 PM) MCHC [32.0-36.0 35.5 g/dL g/dL] (06/23/19 9:47 PM) MCV [80.0-98.0 fL] 82.9 fL (06/23/19 9:47 PM) Monocytes [2.0-12.0 8.3 % %] (06/23/19 9:47 PM) MPV [7.4-10.4 fL] 8.8 fL (06/23/19 9:47 PM) Sodium Lvl [135-145 140 mEq/L mEq/L] (06/23/19 9:47 PM) Platelet [133-450 238 K/CMM K/CMM] (06/23/19 9:47 PM) Segs [45.0-75.0 %] 48.2 % (06/23/19 9:47 PM) RBC [4.20-5.40 4.24 M/CMM M/CMM] (06/23/19 9:47 PM) RDW [11.5-14.5 %] 13.3 % (06/23/19 9:47 PM) S Preg [Negative] Negative *NA* (06/23/19 9:47 PM) WBC [3.7-10.4 K/CMM] 7.8 K/CMM (06/23/19 9:47 PM) 1Result Comment: The eGFR is calculated [...] History Type Response Smoking Status Never smoker; Type: Cigarettes; Exposure to Tobacco Smoke None; Cigarette Smoking Last 365 Days No; Reg Smoking Cessation Counseling Yes entered on: 06/24/19 Assessment and Plan No data available for this section
--- OUTSIDE RECORDS SUMMARY | 2019-06-30 05:36 | XMS REPORT | Summary of Care ---
Author Author [facility] Organization [facility] Address Unknown Phone Unavailable Encounter HQ Viola(FIN) [id number] Date(s): 03/15/19 - 03/15/19 [facility] U[facility] [address] [place] [address]- Discharge Disposition: Home or Self Care Attending Physician: Vince Mcpherson MD Vital Signs Most recent to 1 oldest [Reference Range]: Height 160.02 cm (03/15/19 10:43 AM) Blood Pressure 109/74 mmHg [90-140/60-90 mmHg] (03/15/19 10:43 AM) Peripheral Pulse 81 bpm Rate [60-100 bpm] (03/15/19 10:43 AM) Weight 65.625 kg (03/15/19 10:43 AM) Body Mass Index 25.63 m2 (03/15/19 10:43 AM) Problem List Condition Effective Dates Status Health Status Informant Acne(Confirmed) Resolved ADD (attention Resolved deficit disorder)(Confirmed) Back pain(Confirmed) Resolved Acid Resolved reflux(Confirmed) 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) High Resolved cholesterol(Confirme d) Hypothyroidism(Confi Resolved rmed) Bladder Resolved infection(Confirmed) Depression(Confirmed Resolved ) Kidney Resolved infection(Confirmed) UTI (urinary tract Resolved infection)(Confirmed ) Allergies, Adverse Reactions, Alerts Substance Reaction Severity Status codeine Active Medications Macrobid 100 mg oral capsule 100 mg=1 cap, PO, Daily, # 30 cap, 1 Refill(s), Pharmacy: [id number] Start Date: 03/15/19 Stop Date: 05/14/19 Status: Ordered Results Most recent to 1 oldest [Reference Range]: POC UA Bili Negative [Negative] *NA* (03/15/19 10:33 AM) POC UA Bld Negative [Negative] *NA* (03/15/19 10:33 AM) POC UA Color Yellow [Yellow] *NA* (03/15/19 10:33 AM) POC UA Glu [Negative Negative mg/dL mg/dL] *NA* (03/15/19 10:33 AM) POC UA Ket [Negative Negative mg/dL mg/dL] *NA* (03/15/19 10:33 AM) POC UA LeukEst Small [Negative] *ABN* (03/15/19 10:33 AM) POC UA Nit Negative [Negative] *NA* (03/15/19 10:33 AM) POC UA pH [5.0-8.0] 7.0 (03/15/19 10:33 AM) POC UA Prot Negative mg/dL [Negative mg/dL] *NA* (03/15/19 10:33 AM) POC UA SG [<=1.030] 1.015 (03/15/19 10:33 AM) POC UA Turbidity Clear [Clear] *NA* (03/15/19 10:33 AM) POC UA Uro [0.1-1.0 0.2 EU/dL EU/dL] (03/15/19 10:33 AM) Immunizations No data available for this section Procedures Procedure Date Related Diagnosis Body Site Status Measurement of post-voiding residual urine 03/15/19 Completed and/or bladder capacity by ultrasound, non-imaging Breast procedure Completed Cholecystocecostomy Completed Hysterectomy Completed Social History Social History Type Response Smoking Status Never smoker; Type: Cigarettes; Exposure to Tobacco Smoke None; Cigarette Smoking Last 365 Days No; Reg Smoking Cessation Counseling No entered on: 03/15/19 Assessment and Plan No data available for this section
--- OUTSIDE RECORDS SUMMARY | 2019-06-30 05:36 | XMS REPORT | Summary of Care ---
Author Author [facility] Organization [facility] Address Unknown Phone Unavailable Encounter [facility] Viola(FIN) [id number] Date(s): 12/03/18 - 12/04/18 [facility] [address] [place] [address]- [phone] Encounter Diagnosis Closed head injury (Discharge Diagnosis) - 12/04/18 Contusion of hip, left (Discharge Diagnosis) - 12/04/18 Acute left-sided low back pain with sciatica (Discharge Diagnosis) - 12/04/18 Discharge Disposition: Home or Self Care Attending Physician: Pierce Schmidt DO Vital Signs Most recent to 1 2 oldest [Reference Range]: Height 160.02 cm (12/03/18 11:49 PM) Temperature Oral 98.6 DegF 98.1 DegF [96.4-99.1 DegF] (12/04/18 3:11 AM) (12/03/18 11:49 PM) Blood Pressure 121/72 mmHg 123/78 mmHg [90-140/60-90 mmHg] (12/04/18 3:11 AM) (12/03/18 11:49 PM) Respiratory Rate 19 BRMIN 17 BRMIN [14-20 BRMIN] (12/04/18 3:11 AM) (12/03/18 11:49 PM) Peripheral Pulse 87 bpm 81 bpm Rate [60-100 bpm] (12/04/18 3:11 AM) (12/03/18 11:49 PM) Weight 65.909 kg (12/03/18 11:49 PM) Body Mass Index 25.74 m2 (12/03/18 11:49 PM) Problem List Condition Effective Dates Status Health Status Informant Acne(Confirmed) Resolved ADD (attention Resolved deficit disorder)(Confirmed) Back pain(Confirmed) Resolved Acid Resolved reflux(Confirmed) 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) High Resolved cholesterol(Confirme d) Hypothyroidism(Confi Resolved rmed) Bladder Resolved infection(Confirmed) Depression(Confirmed Resolved ) Kidney Resolved infection(Confirmed) UTI (urinary tract Resolved infection)(Confirmed ) Allergies, Adverse Reactions, Alerts Substance Reaction Severity Status codeine Active Medications morphine Sulfate 4 mg, Route: IM, ONCE, Dosing Weight 65.909, kg, Priority: STAT, Start date: 2:25:00 [employer], Stop date: 12/04/18 2:25:00 [employer] Start Date: 12/04/18 Stop Date: 12/04/18 Status: Completed Zofran ODT 4 mg, Route: PO, Drug form: TABDIS, ONCE, Dosing Weight 65.909, kg, Priority: ST AT, Start date: 12/04/18 2:25:00 [employer], Stop date: 12/04/18 2:25:00 [employer] Start Date: 12/04/18 Stop Date: 12/04/18 Status: Completed Results No data available for this section Immunizations No data available for this section Procedures Procedure Date Related Diagnosis Body Site Status Breast procedure Completed Cholecystocecostomy Completed Hysterectomy Completed Social History Social History Type Response Smoking Status Never smoker; Exposure to Tobacco Smoke None; Cigarette Smoking Last 365 Days No; Reg Smoking Cessation Counseling No entered on: 12/04/18 Assessment and Plan No data available for this section
--- OUTSIDE RECORDS SUMMARY | 2019-06-30 05:36 | XMS REPORT | Summary of Care ---
Author Author [facility] Organization [facility] Address Unknown Phone Unavailable Encounter [facility] Viola(FIN) [id number] Date(s): 06/24/19 - 06/24/19 [facility] [address] [employer] provided by [employer] [facility] [employer] [place] [place] [address]- Encounter Diagnosis Cervical pain (neck) (Discharge Diagnosis) - 06/24/19 Discharge Disposition: Home or Self Care Attending Physician: Vahid David MD Admitting Physician: Joseph Mazariegos MD Referring Physician: Ezio Carbajal MD Vital Signs 1 2 3 Most recent to oldest [Reference Range]: 98 DegF (06/24/19 2:00 PM) 98.1 DegF (06/24/19 9:43 AM) 97.9 DegF (06/24/19 6:55 AM) Temperature Oral [96.4-99.1 DegF] 102/70 mmHg (06/24/19 2:00 PM) 99/62 mmHg (06/24/19 12:00 PM) 91/60 mmHg (06/24/19 11:45 AM) Blood Pressure [90-140/60-90 mmHg] 16 BRMIN (06/24/19 2:00 PM) 16 BRMIN (06/24/19 12:00 PM) 14 BRMIN (06/24/19 11:45 AM) Respiratory Rate [14-20 BRMIN] 88 bpm (06/24/19 6:55 AM) 74 bpm (06/24/19 5:22 AM) Peripheral Pulse Rate [60-100 bpm] Problem List Condition Effective Dates Status Health Status Informant Acne(Confirmed) Resolved ADD (attention Resolved deficit disorder)(Confirmed) Back pain(Confirmed) Resolved Acid Resolved reflux(Confirmed) 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) High Resolved cholesterol(Confirme d) Hypothyroidism(Confi Resolved rmed) Bladder Resolved infection(Confirmed) Depression(Confirmed Resolved ) Kidney Resolved infection(Confirmed) UTI (urinary tract Resolved infection)(Confirmed ) Allergies, Adverse Reactions, Alerts Substance Reaction Severity Status codeine Active Medications Compazine 10 mg, 2 mL, Route: IV, Drug form: INJ, ONCE, Dosing Weight 67, kg, Start date: 06/24/19 7:46:00 CDT, Stop date: 06/24/19 7:46:00 CDT, 0 Notes: (Same as: Compazine) Start Date: 06/24/19 Stop Date: 06/24/19 Status: Completed Isolyte S PH-7.4 (Bolus) IV 1,000 mL, 1,000 ml/hr, Infuse Over: 1 hr, Route: IV, 1,000, Drug form: SOLN, ONC E, Dosing Weight 67 kg, Start date: 06/24/19 7:46:00 CDT, Stop date: 06/24/19 7: 46:00 CDT, 0 Notes: (Same as: Isolyte S PH 7.4) Start Date: 06/24/19 Stop Date: 06/24/19 Status: Completed Isolyte S PH-7.4 (Bolus) IV 1,000 mL, 1,000 ml/hr, Route: IV, ONCE, Dosing Weight 67 kg, Start date: 9 11:42:00 CDT, Stop date: 06/24/19 11:42:00 CDT Start Date: 06/24/19 Stop Date: 06/24/19 Status: Discontinued ketOROLAC 15 mg/mL injectable solution 15 mg, 1 mL, Route: IVP, Drug form: INJ, ONCE, Dosing Weight 67, kg, Priority: S TAT, Start date: 06/24/19 7:46:00 CDT, Stop date: 06/24/19 7:46:00 CDT, 0 Notes: (Same as:Toradol) IV bolus must be given >15 seconds. Give IM administration slowly and deeply into the muscle. Not for use > 4 days. Start Date: 06/24/19 Stop Date: 06/24/19 Status: Completed Tylenol 975 mg, 3 tab, Route: PO, Drug form: TAB, ONCE, Dosing Weight 67, kg, Priority: STAT, Start date: 06/24/19 7:46:00 CDT, Stop date: 06/24/19 7:46:00 CDT, 0 Notes: Do not exceed 4 gm/day. (Same as: Tylenol) Start Date: 06/24/19 Stop Date: 06/24/19 Status: Completed Results No data available for [...]
[2019-06-30] MEDS ORDERED: CEFAZOLIN SOD 1 GM/NS 50ML 50 ML IV ONE (05:49)
[2019-06-30] MEDS ORDERED: BUPIVACAINE 0.5%/EPI 30 ML SDV INJ ONE (06:45)
[2019-06-30] MEDS ORDERED: BACITRACIN 50,000 UNIT VIAL ONE (06:45)
[2019-06-30] MEDS ORDERED: THROMBIN FOR SOLN 5,000 UNIT VIAL ONE (06:45)
[2019-06-30] MEDS ORDERED: LIDOCAINE HCL (LTA) 4 ML SOLN ONE (06:47)
[2019-06-30] MEDS ORDERED: ACETAMINOPHEN 1000 MG/100 ML 100 ML IV ONE (06:47)
[2019-06-30] MEDS ORDERED: IBUPROFEN 800MG/ 250ML 250 ML IV ONE (06:47)
[2019-06-30 06:50] LABS: ANION GAP 15.1 mmol/L (8-16); CALCIUM 9.3 mg/dL (8.4-10.2); CREATININE, SERUM 1.6 mg/dL (0.57-1.11); POTASSIUM 3.1 mmol/L (3.5-5.1)
[2019-06-30] MEDS ORDERED: SODIUM CHLORIDE 0.9% 50ML 50 ML ONE (07:07)
[2019-06-30] MEDS ORDERED: FAMOTIDINE 20 MG/2 ML VIAL IV ONE (07:07)
[2019-06-30] MEDS ORDERED: METOCLOPRAMIDE HCL 10 MG/2ML VIAL ONE (07:07)
[2019-06-30] MEDS ORDERED: ACETAMINOPHEN PO SCH (09:15)
[2019-06-30] MEDS ORDERED: PROMETHAZINE HCL (IM) 25 MG/ML VIAL IM PRN (09:15)
[2019-06-30] MEDS ORDERED: HYDROMORPHONE 2MG/ML 2 MG/ML ML IV PRN (09:15)
[2019-06-30] MEDS ORDERED: ZOLPIDEM TARTRATE 5 MG TAB PO PRN (09:15)
[2019-06-30] MEDS ORDERED: BUTALBITAL PO SCH (09:15)
[2019-06-30] MEDS ORDERED: MAGNESIUM/ALUMINUM/SIMETHICONE 30 ML UDC PO PRN (09:15)
[2019-06-30] MEDS ORDERED: ACETAMINOPHEN 325 MG TAB PO PRN (09:15)
[2019-06-30] MEDS ORDERED: [UNRECOGNIZED DRUG - OTHER] PO SCH (09:15)
[2019-06-30] MEDS ORDERED: ONDANSETRON HCL INJ 2MG/ML 2ML 2 MG/ML VIAL IV PRN (09:15)
[2019-06-30] MEDS ORDERED: MORPHINE SULFATE 5 MG/ML VIAL IM PRN (09:15)
[2019-06-30] MEDS ORDERED: FENTANYL CITRATE/PF 100MCG/2 ML INJ ONE ×2 (09:21→18:49)
--- OUTSIDE RECORDS SUMMARY | 2019-06-30 09:25 | XMS REPORT | Continuity of Care Document ---
Author Author [employer] Address Unknown Phone Unavailable Care Team Providers Care Educational/Development Assistant Name Role Phone [employer] [facility] Unavailable Unavailable Problems Problem Status Onset Date Classification Date Reported Comments Source Cervicalgia 06/24/2019 06/26/2019 [facility] SHARP NECK PAIN Active 06/23/2019 [facility] Weakness 02/07/2019 02/09/2019 [facility] Headache 02/07/2019 02/09/2019 [facility] Unspecified injury of head, initial encounter 12/04/2018 12/06/2018 [facility] Contusion of left hip, initial encounter 12/04/2018 12/06/2018 [facility] Lumbago with sciatica, unspecified side 12/04/2018 12/06/2018 [facility] HEADACHE Active 12/03/2018 [facility] BACK INJURY PAIN Active 12/03/2018 [facility] CERVICAL STENOSIS AND ARM NUMB Active 12/03/2018 [facility] Epigastric pain 12/18/2017 03/20/2018 [facility] DX: R10.13=EPIGASTRIC PAIN/ABNORMAL FIND Active 12/04/2017 [facility] ABDOMINAL PAIN Active 11/02/2017 [facility] DX: 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 Active 10/15/2016 [facility] R10.9 Active 11/30/2015 [facility] Nausea 03/20/2018 [facility] Constipation, unspecified 03/20/2018 [facility] Hemangioma of other sites 03/20/2018 [facility] Personal history of colonic polyps 03/20/2018 [facility] Acquired absence of other specified parts of digestive tract 03/20/2018 [facility] Acne (disorder) Resolved Problem 06/26/2019 [facility] Attention deficit hyperactivity disorder (disorder) Resolved Problem 06/26/2019 [facility] Backache (finding) Resolved Problem 06/26/2019 [facility] Gastroesophageal reflux disease (disorder) Resolved Problem 06/26/2019 [facility] Human papilloma virus infection (disorder) Resolved Problem 06/26/2019 [facility] Hypercholesterolemia (disorder) Resolved Problem 06/26/2019 [facility] Hypothyroidism (disorder) Resolved Problem 06/26/2019 [facility] Infective cystitis (disorder) Resolved Problem 06/26/2019 [facility] Depressive disorder (disorder) Resolved Problem 06/26/2019 [facility] Infectious disorder of kidney (disorder) Resolved Problem 06/26/2019 [facility] Urinary tract infectious disease (disorder) Resolved Problem 06/26/2019 [facility] Medications Medication Details Route Status Patient Instructions Ordering Provider Order Date Source Isolyte S PH-7.4 (Bolus) IV 1,000 mL, 1,000 ml/hr, Route: IV, ONCE, Dosing Weight 67 kg, Start date: 06/24/19 11:42:00 CDT, Stop date: 06/24/19 11:42:00 CDT Inactive 06/24/2019 [facility] Compazine 10 mg, 2 mL, Route: IV, Drug form: INJ, ONCE, Dosing Weight 67, kg, Start date: 06/24/19 7:46:00 CDT, Stop date: 06/24/19 7:46:00 CDT, 0Notes: (Same as: Compazine) Inactive 06/24/2019 [facility] ketOROLAC 15 mg/mL injectable solution 15 mg, 1 mL, Route: IVP, Drug form: INJ, ONCE, Dosing Weight 67, kg, Priority: STAT, Start date: 06/24/19 7:46:00 CDT, Stop date: 06/24/19 7:46:00 CDT, 0Notes: (Same as:Toradol) IV bolus must be given >15 seconds. Give IM administration slowly and deeply into the muscle. Not for use > 4 days. Inactive 06/24/2019 [facility] Tylenol 975 mg, 3 tab, Route: PO, Drug form: TAB, ONCE, Dosing Weight 67, kg, Priority: STAT, Start date: 06/24/19 7:46:00 CDT, Stop date: 06/24/19 7:46:00 CDT, 0Notes: Do not exceed 4 gm/day. (Same as: Tylenol) Inactive 06/24/2019 [facility] Isolyte S PH-7.4 (Bolus) IV 1,000 mL, 1,000 ml/hr, Infuse Over: 1 hr, Route: IV, 1,000, Drug form: SOLN, ONCE, Dosing Weight 67 kg, Start date: 06/24/19 7:46:00 CDT, Stop date: 06/24/19 7:46:00 CDT, 0Notes: (Same as: Isolyte S PH 7.4) Inactive 06/24/2019 [facility] Ondansetron 4 mg, Route: IVP, Drug form: INJ, ONCE, Dosing Weight 67, kg, Priority: STAT, Start date: 06/24/19 4:46:00 CDT, Stop date: 06/24/19 4:46:00 CDT Inactive 06/24/2019 [facility] Acetaminophen 325 MG / Hydrocodone Bitartrate 5 MG Oral Tablet 1 tab, Route: PO, Drug Form: TAB, Dosing Weight 67, kg, ONCE, STAT, Start date: 06/24/19 3:43:00 CDT, Stop date: 06/24/19 3:43:00 CDT Inactive 06/24/2019 [facility] Ondansetron 4 mg, Route: IVP, Drug form: INJ, ONCE, Dosing Weight 67, kg, Priority: STAT, Start date: 06/24/19 0:33:00 CDT, Stop date: 06/24/19 0:33:00 CDT Inactive 06/24/2019 [facility] Morphine 4 mg, 1 mL, Route: IVP, Drug form: SOLN, ONCE, Dosing Weight 67, kg, Priority: STAT, Start date: 06/24/19 0:01:00 CDT, Stop date: 06/24/19 0:01:00 CDT, 0Notes: (Same as:MORPhine Sulfate) Inactive 06/24/2019 [facility] Nitrofurantoin 100 MG Oral Capsule [Macrobid] 100 mg=1 cap, PO, Daily, # 30 cap, 1 Refill(s), Pharmacy: [facility] [id number] Active 03/15/2019 [facility] Dexamethasone 10 mg, Route: IVP, ONCE, Dosing Weight 65.909, kg, Start date: 02/07/19 3:55:00 CDT, Stop date: 02/07/19 3:55:00 CDT Inactive 02/07/2019 [facility] Metoclopramide 10 mg, Route: IVP, Drug form: INJ, ONCE, Dosing Weight 65.909, kg, Priority: STAT, Start date: 02/07/19 3:55:00 CDT, Stop date: 02/07/19 3:55:00 CDT Inactive 02/07/2019 [facility] Sodium Chloride 0.9% (Bolus) IV 1,000 mL, Infuse Over: 1 hr, Route: IV, ONCE, Priority: STAT, Dosing Weight 65.909 kg, Start date: 02/07/19 3:55:00 CDT, Stop date: 02/07/19 3:55:00 CDT Inactive 02/07/2019 [facility] Zofran ODT 4 mg, Route: PO, Drug form: TABDIS, ONCE, Dosing Weight 65.909, kg, Priority: STAT, Start date: 12/04/18 2:25:00 SUPERCHARGER REPAIR SUPERVISOR, Stop date: 12/04/18 2:25:00 SUPERCHARGER REPAIR SUPERVISOR Inactive 12/04/2018 [facility] Morphine 4 mg, Route: IM, ONCE, Dosing Weight 65.909, kg, Priority: STAT, Start date: 12/04/18 2:25:00 SUPERCHARGER REPAIR SUPERVISOR, Stop date: 12/04/18 2:25:00 SUPERCHARGER REPAIR SUPERVISOR Inactive 12/04/2018 [facility] Allergies, Adverse Reactions, Alerts Substance Category Reaction Severity Reaction type Status Date Reported Comments Source codeine Assertion Drug allergy Active [facility] Immunizations No Data Provided for This Section Results Order Name Results Value Reference Range Date Interpretation Comments Source ELECTROLYTES AGAP 8.5 10.0 - 20.0 06/24/2019 [facility] ELECTROLYTES Glucose Lvl 101 70 - 99 06/24/2019 [facility] ELECTROLYTES BUN 25 7 - 22 06/24/2019 [facility] ELECTROLYTES Creatinine Lvl 1.26 0.50 - 1.40 06/24/2019 [facility] ELECTROLYTES Sodium Lvl 140 135 - 145 06/24/2019 [facility] ELECTROLYTES Potassium Lvl 3.5 3.5 - 5.1 06/24/2019 [facility] ELECTROLYTES Chloride Lvl 105 95 - 109 06/24/2019 [facility] ELECTROLYTES CO2 30 24 - 32 06/24/2019 [facility] ELECTROLYTES Calcium Lvl 9.3 8.5 - 10.5 06/24/2019 [facility] ELECTROLYTES eGFR 49 06/24/2019 Result Comment: The [...] should be multiplied by the estimated BMI. [facility] ENDOCRINOLOGY S Preg Negative *NA* (06/23/19 9:47 PM) Negative 06/24/2019 [facility] HEMATOLOGY Segs 48.2 45.0 - 75.0 06/24/2019 [facility] Lymphocytes 40.5 20.0 - 40.0 06/24/2019 [facility] HEMATOLOGY Monocytes 8.3 2.0 - 12.0 06/24/2019 [facility] HEMATOLOGY Eosinophils 2.3 0.0 - 4.0 06/24/2019 [facility] HEMATOLOGY Basophils 0.7 0.0 - 1.0 06/24/2019 [facility] HEMATOLOGY Neutrophils # 3.7 1.5 - 8.1 06/24/2019 [facility] HEMATOLOGY Lymphocytes # 3.1 1.0 - 5.5 06/24/2019 [facility] HEMATOLOGY Monocytes # 0.6 0.0 - 0.8 06/24/2019 [facility] HEMATOLOGY Eosinophils # 0.2 0.0 - 0.5 06/24/2019 [facility] HEMATOLOGY Basophils # 0.1 0.0 - 0.2 06/24/2019 [facility] HEMATOLOGY WBC 7.8 3.7 - 10.4 06/24/2019 [facility] HEMATOLOGY RBC 4.24 4.20 - 5.40 06/24/2019 [facility] HEMATOLOGY Hgb 12.5 12.0 - 16.0 06/24/2019 [facility] HEMATOLOGY Hct 35.2 36.0 - 48.0 06/24/2019 [facility] HEMATOLOGY MCV 82.9 80.0 - 98.0 06/24/2019 [facility] HEMATOLOGY MCH 29.5 27.0 - 31.0 06/24/2019 [facility] HEMATOLOGY MCHC 35.5 32.0 - 36.0 06/24/2019 [facility] HEMATOLOGY RDW 13.3 11.5 - 14.5 06/24/2019 [facility] HEMATOLOGY Platelet 238 133 - 450 06/24/2019 [facility] HEMATOLOGY MPV 8.8 7.4 - 10.4 06/24/2019 [facility] URINE AND STOOL POC UA Nit Negative *NA* (03/15/19 10:33 AM) Negative 03/15/2019 [facility] URINE AND STOOL POC UA Bld Negative *NA* (03/15/19 10:33 AM) Negative 03/15/2019 [facility] URINE AND STOOL POC UA Uro 0.2 0.1 - 1.0 03/15/2019 [facility] URINE AND STOOL POC UA LeukEst Small *ABN* (03/15/19 10:33 AM) Negative 03/15/2019 [facility] URINE AND STOOL POC UA SG 1.015 <=1.030 03/15/2019 [facility] URINE AND STOOL POC UA pH 7.0 5.0 - 8.0 03/15/2019 [facility] URINE AND STOOL POC UA Turbidity Clear *NA* (03/15/19 10:33 AM) Clear 03/15/2019 [facility] URINE AND STOOL POC UA Ket Negative mg/dL Negative mg/dL 03/15/2019 [facility] URINE AND STOOL POC UA Glu Negative mg/dL Negative mg/dL 03/15/2019 [facility] URINE AND STOOL POC UA Prot Negative mg/dL Negative mg/dL 03/15/2019 [facility] URINE AND STOOL POC UA Bili Negative *NA* (03/15/19 10:33 AM) Negative 03/15/2019 [facility] URINE AND STOOL POC UA Color Yellow *NA* (03/15/19 10:33 AM) Yellow 03/15/2019 [facility] CARDIAC ENZYMES Troponin-I <0.02 0.00 - 0.40 02/07/2019 [facility] ELECTROLYTES AGAP 11.5 10.0 - 20.0 02/07/2019 [facility] ELECTROLYTES eGFR 59 02/07/2019 Result Comment: [...] should be multiplied by the estimated BMI. [facility] ELECTROLYTES Glucose Lvl 95 70 - 99 02/07/2019 [facility] ELECTROLYTES BUN 20 7 - 22 02/07/2019 [facility] ELECTROLYTES Chloride Lvl 98 95 - 109 02/07/2019 [facility] ELECTROLYTES Calcium Lvl 9.6 8.5 - 10.5 02/07/2019 [facility] ELECTROLYTES CO2 32 24 - 32 02/07/2019 [facility] ELECTROLYTES Potassium Lvl 3.5 3.5 - 5.1 02/07/2019 [facility] ELECTROLYTES Creatinine Lvl 1.08 0.50 - 1.40 02/07/2019 [facility] ELECTROLYTES Sodium Lvl 138 135 - 145 02/07/2019 [facility] HEMATOLOGY RBC 4.53 4.20 - 5.40 02/07/2019 [facility] HEMATOLOGY Hgb 12.9 12.0 - 16.0 02/07/2019 [facility] HEMATOLOGY WBC 5.7 3.7 - 10.4 02/07/2019 [facility] MCHC 33.0 32.0 - 36.0 02/07/2019 [facility] MCH 28.6 27.0 - 31.0 02/07/2019 [facility] HEMATOLOGY MPV 8.0 7.4 - 10.4 02/07/2019 [facility] HEMATOLOGY Platelet 212 133 - 450 02/07/2019 [facility] HEMATOLOGY MCV 86.6 80.0 - 98.0 02/07/2019 [facility] HEMATOLOGY RDW 14.1 11.5 - 14.5 02/07/2019 [facility] HEMATOLOGY Hct 39.2 36.0 - 48.0 02/07/2019 [facility] HEMATOLOGY Basophils 0.4 0.0 - 1.0 02/07/2019 [facility] HEMATOLOGY Eosinophils 1.2 0.0 - 4.0 02/07/2019 [facility] HEMATOLOGY Neutrophils # 3.1 1.5 - 8.1 02/07/2019 [facility] HEMATOLOGY Segs 54.1 45.0 - 75.0 02/07/2019 [facility] HEMATOLOGY Monocytes 8.8 2.0 - 12.0 02/07/2019 [facility] HEMATOLOGY Eosinophils # 0.1 0.0 - 0.5 02/07/2019 [facility] Monocytes # 0.5 0.0 - 0.8 02/07/2019 [facility] Lymphocytes 35.5 20.0 - 40.0 02/07/2019 [facility] Lymphocytes # 2.0 1.0 - 5.5 02/07/2019 [facility] URINE AND STOOL UA Leuk Est Small *ABN* (02/07/19 3:35 AM) Negative 02/07/2019 [facility] URINE AND STOOL UA Nitrite Negative (02/07/19 3:35 AM) Negative 02/07/2019 [facility] URINE AND STOOL UA Blood Negative (02/07/19 3:35 AM) Negative 02/07/2019 [facility] URINE AND STOOL UA Bili Negative *NA* (02/07/19 3:35 AM) Negative 02/07/2019 [facility] URINE AND STOOL UA Urobilinogen <=1.0 mg/dL 0.1 - 1.0 02/07/2019 [facility] URINE AND STOOL UA RBC 1 0 - 2 02/07/2019 [facility] URINE AND STOOL UA Color Ltyellow 02/07/2019 [facility] URINE AND STOOL UA Sq Epi Occasional /LPF Few /LPF 02/07/2019 [facility] URINE AND STOOL UA WBC 3 0 - 5 02/07/2019 [facility] URINE AND STOOL UA Glucose Negative mg/dL Negative mg/dL 02/07/2019 [facility] URINE AND STOOL UA Protein Negative mg/dL Negative mg/dL 02/07/2019 [facility] URINE AND STOOL UA Ketones Negative mg/dL Negative mg/dL 02/07/2019 [facility] URINE AND STOOL UA Spec Grav 1.010 <=1.030 02/07/2019 [facility] URINE AND STOOL UA Turbidity Clear (02/07/19 3:35 AM) Clear 02/07/2019 [facility] URINE AND STOOL UA pH 7.0 5.0 - 8.0 02/07/2019 [facility] CHEM PANEL eGFR 47 12/13/2017 Result [...] should be multiplied by the estimated BMI. [facility] CHEM PANEL POC Creatinine 1.3 0.5 - 1.4 12/13/2017 [facility] Pathology Reports No Data Provided for [...] imaging in 3-6 months. SL: ERIN 06/24/2019 [facility] Spine cervical w contrast CT Study: Spine [...] may be helpful in further assessment. SL: [id number] 06/23/2019 [facility] Brain wo contrast CT Clinical Indication: [...] or subacute stroke. ----- SL: [id number] 02/06/2019 [facility] Spine cervical wo contrast CT (ER) [...] foraminal stenosis at C6-C7. SL: ASYA 12/04/2018 [facility] Brain wo contrast CT Clinical Indication: [...] no mass, hemorrhage or subacute stroke. SL: [id number] 12/04/2018 [facility] Hip 2/3 views uni w pelvis [...] fracture or dislocation of the hip. 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 SL: RUTHANN 12/04/2018 [facility] Abdomen w/wo contrast MRI EXAM: MRI [...] acute finding. 2. Cholecystectomy. BOY 14 12/12/2017 [facility] ED Abdomen/Pelvis IV contrast only CT Clinical Indication: Abdominal pain, acute - epigastric abdominal pain Comparison: None TECHNIQUE: Helical imaging was performed diaphragm through the symphysis with multiplanar reformations obtained. IV CONTRAST: 100cc Omnipaque 300 GI CONTRAST: No CT Radiation Dose: BIV=6272.66 mGy-cm FINDINGS: LOWER CHEST: The lung bases [...] identified in the abdomen or pelvis. SL: [id number] 11/02/2017 [facility] Consultation Notes No Data Provided for This Section Discharge Summaries No Data Provided for This Section History and Physicals No Data Provided for This Section Vital Signs Vital Sign Value Date Comments Source Temperature Oral (F) 98 F 06/24/2019 [facility] Respitory Rate 16 06/24/2019 [facility] Systolic (mm Hg) 102 06/24/2019 [facility] Diastolic (mm Hg) 70 06/24/2019 [facility] Respitory Rate 16 06/24/2019 [facility] Systolic (mm Hg) 99 06/24/2019 [facility] Diastolic (mm Hg) 62 06/24/2019 [facility] Respitory Rate 14 06/24/2019 [facility] Systolic (mm Hg) 91 06/24/2019 [facility] Diastolic (mm Hg) 60 06/24/2019 [facility] Temperature Oral (F) 98.1 F 06/24/2019 [facility] Temperature Oral (F) 97.9 F 06/24/2019 [facility] Heart Rate 88 06/24/2019 [facility] Heart Rate 74 06/24/2019 [facility] Temperature Oral (F) 98.1 F 06/24/2019 [facility] Heart Rate 71 06/24/2019 [facility] Respitory Rate 17 06/24/2019 [facility] Systolic (mm Hg) 111 06/24/2019 [facility] Diastolic (mm Hg) 84 06/24/2019 [facility] Temperature Oral (F) 98 F 06/24/2019 [facility] Respitory Rate 18 06/24/2019 [facility] Systolic (mm Hg) 102 06/24/2019 [facility] Diastolic (mm Hg) 59 06/24/2019 [facility] Heart Rate 63 06/24/2019 [facility] Systolic (mm Hg) 125 06/24/2019 [facility] Diastolic (mm Hg) 81 06/24/2019 [facility] Heart Rate 89 06/24/2019 [facility] Respitory Rate 16 06/24/2019 [facility] Temperature Oral (F) 97.9 F 06/24/2019 [facility] Weight 67 06/24/2019 [facility] Height 160.02 cm 03/15/2019 [facility] BMI Calculated 25.63 03/15/2019 [facility] Weight 65.625 03/15/2019 [facility] Heart Rate 81 03/15/2019 [facility] Systolic (mm Hg) 109 03/15/2019 [facility] Diastolic (mm Hg) 74 03/15/2019 [facility] Temperature Oral (F) 98.5 F 02/07/2019 [facility] Heart Rate 72 02/07/2019 [facility] Respitory Rate 16 02/07/2019 [facility] Systolic (mm Hg) 113 02/07/2019 [facility] Diastolic (mm Hg) 80 02/07/2019 [facility] Heart Rate 93 02/07/2019 [facility] Respitory Rate 18 02/07/2019 [facility] Systolic (mm Hg) 100 02/07/2019 [facility] Diastolic (mm Hg) 70 02/07/2019 [facility] Weight 65.909 02/07/2019 [facility] BMI Calculated 25.74 02/07/2019 [facility] Height 160.02 cm 02/07/2019 [facility] Temperature Oral (F) 98.8 F 02/07/2019 [facility] Systolic (mm Hg) 121 12/04/2018 [facility] Diastolic (mm Hg) 72 12/04/2018 [facility] Temperature Oral (F) 98.6 F 12/04/2018 [facility] Heart Rate 87 12/04/2018 [facility] Respitory Rate 19 12/04/2018 [facility] Height 160.02 cm 12/04/2018 [facility] BMI Calculated 25.74 12/04/2018 [facility] Weight 65.909 12/04/2018 [facility] Temperature Oral (F) 98.1 F 12/04/2018 [facility] Systolic (mm Hg) 123 12/04/2018 [facility] Diastolic (mm Hg) 78 12/04/2018 [facility] Heart Rate 81 12/04/2018 [facility] Respitory Rate 17 12/04/2018 [facility] Encounters Location Location Details Encounter Type Encounter Number Reason For Visit Attending Provider ADM Date DC Date Status Source Outpatient [id number] [facility] 07/03/2015 [facility] Outpatient [id number] [facility] PROC ROOM 3 VISIT 11/30/2015 [facility] Outpatient [id number] [facility] 11/30/2015 [facility] Outpatient [id number] CLINICAL PATH LAB VISIT 10/09/2016 [facility] Outpatient [id number] [facility] 10/27/2016 [facility] Outpatient [id number] [facility] 11/26/2016 [facility] Outpatient [id number] Porfirio Nation 12/13/2017 12/13/2017 [facility] Emergency [id number] Pierce Schmidt 12/04/2018 12/04/2018 [facility] Emergency [id number] Sapphire Hesterqi 02/07/2019 02/07/2019 [facility] Outpatient [id number] [facility] 03/15/2019 [facility] Outpatient [id number] [facility] 03/15/2019 03/16/2019 [facility] Emergency [id number] Ezio Carbajal 06/24/2019 06/24/2019 [facility] Emergency [id number] Vahid Allenter 06/24/2019 06/24/2019 [facility] Outpatient [id number] [facility] 03/14/2020 [facility] Procedures Procedure Code Date Perfomer Comments Source Measurement of post-voiding residual urine and/or bladder capacity by ultrasound, non-imaging [id number] 03/15/2019 [facility] Breast procedure [id number] [facility] Cholecystocecostomy [id number] [facility] Hysterectomy [id number] [facility] Assessment and Plan No Data Provided for This Section Plan of Care No Data Provided for This Section Social History Social History Date Source Social History TypeResponse Smoking Status Never smoker; Type: Cigarettes; Exposure to Tobacco Smoke None; Cigarette Smoking Last 365 Days No; Reg Smoking Cessation Counseling Yes entered on: 06/24/19 06/24/2019 [facility] Social History TypeResponse Smoking Status Never smoker; Type: Cigarettes; Exposure to Tobacco Smoke None; Cigarette Smoking Last 365 Days No; Reg Smoking Cessation Counseling Yes entered on: 06/24/19 06/24/2019 [facility] Social History TypeResponse Smoking Status Never smoker; Type: Cigarettes; Exposure to Tobacco Smoke None; Cigarette Smoking Last 365 Days No; Reg Smoking Cessation Counseling No entered on: 03/15/19 03/15/[facility] Social History TypeResponse Smoking Status Never smoker; Exposure to Tobacco Smoke None; Cigarette Smoking Last 365 Days No; Reg Smoking Cessation Counseling No entered on: 02/07/19 02/07/2019 [facility] Family History No Data Provided for This Section Advance Directives No Data Provided for This Section Functional Status No Data Provided for This Section
--- OUTSIDE RECORDS SUMMARY | 2019-06-30 09:25 | XMS REPORT | Clinical Summary ---
Author Author [facility] Address Unknown Phone Unavailable Care Team Providers Care Caramel Candy Maker Helper Name Role Phone Stephie Rodríguez MD PCP [...] Phone Address Plan / Dates Group HMO/PPO [facility] xxxxxxxxx [id number] THCARE resent CHOICE/CHO ICE + Advance Directives For more information, please contact: [phone] Patient Embryology Professor Explanation Type Date Recorded Advance Directives, Living Will and Medical Power of Carry All Driver
--- NOTE | 2019-06-30 09:56 | NUR ---
Patient admitted to facility from PACU. Patient is post op cervical fusion. Soft collar in place. Surgical dressing in place to right neck clean and dry. No c/o pain at this time. Lung jarvis clear to auscultation. Bowel sounds present x4 but hypoactive. No edema noted. Patient voided at this time. Ambulates with no assistance. Left hand 20G IV in place.
[2019-06-30 10:50] VITALS: BP 103/75
[2019-06-30 11:33] VITALS: BP 103/75
[2019-06-30] MEDS: KCL 20MEQ/.9 SOD CHL 1,000 ML IV SCH ×2 (11:45→12:31)
[2019-06-30 15:16] VITALS: BP 108/59
--- NOTE | 2019-06-30 16:24 | Operative Report ---
DATE OF PROCEDURE: 06/30/2019 SURGEON: Monster Melvin MD PREOPERATIVE DIAGNOSIS: C6-7 disk herniation with radiculopathy, M50.123. POSTOPERATIVE DIAGNOSIS: C6-7 disk herniation with radiculopathy, M50.123. PROCEDURES: 1. C6-7 anterior cervical diskectomy and allograft fusion, 89812. 2. Preparation of MTF corticocancellous allograft, 50731. 3. C6-7 anterior cervical plating with Synthes ZPN plate, 80485. ANESTHESIA: General. INDICATIONS: The patient is a woman, who presents with a large C6-7 disk herniation on the right side, symptomatic with right C7 radiculopathy refractory to extensive conservative treatment. She was taken to the operating room for anterior cervical decompression and fusion. PROCEDURE IN DETAIL: After induction of general anesthesia, the patient was placed on the operating table in supine position. The right side of neck was prepped and draped in sterile fashion. The fluoroscopic C-arm was positioned in cross-table lateral orientation. A small transverse incision was created on the right side of neck superimposed on the C6-7 disk space as determined by fluoroscopy. The platysma was divided in line with the incision. A subplatysmal dissection was carried out and avascular plane of dissection was developed medial to the sternocleidomastoid muscle and was followed medial to the carotid sheath to the anterior border of the cervical spine. The deep cervical fascia was opened. The esophagus was retracted to the left. The attachments of longus colli muscles to the anterolateral aspects of vertebral bodies of C6 and C7 were divided. The anterior longitudinal ligament was resected. [place] posts were inserted into C6 and C7. The [place] distractor was used to distract the disk space. The anterior annulus of the disk was incised with a #11 blade. The contents of the disk were thoroughly evacuated with angled curettes and pituitary rongeurs. The posterior osteophytes were meticulously drilled with a 2 mm cutting bur until they were completely removed. The posterior annulus of the disk, a large amount of herniated disk material, and the posterior longitudinal ligament were resected [id number] until the dura was fully exposed and decompressed. The medial aspects of the uncinate processes were resected bilaterally to further expose and decompress the origins of the corresponding C7 nerve roots. After satisfactory decompression had been achieved, the endplates were prepared for fusion. The disk space was sized and found to be 7 mm in height. A Synthes ZPN implant measuring 7 mm in height was selected. A piece of MTF corticocancellous allograft measuring 7 mm in thickness was selected and prepared in saline and inserted into the Synthes ZPN plate. The construct was then inserted into the C6-7 disk space under lateral fluoroscopic guidance and tamped in place until its anterior margin was flushed with anterior margin of the vertebral bodies. The plate was then screwed to the endplates of C6 and C7 with two pairs of 14 mm screws. All screws were locked and excellent construct was obtained. The wound was copiously irrigated with bacitracin solution. Meticulous hemostasis was secured. Retractor was removed. The platysma was closed with 3-0 Vicryl sutures. The skin was closed with 4-0 Monocryl sutures in subcuticular fashion. Steri-Strips and dressing were applied. The patient was awakened, extubated, and taken to Postanesthesia Care Unit in stable condition. No intraoperative complications were encountered. ESTIMATED BLOOD LOSS: Less than 10 mL. Monster Melvin MD PP/MORALES /[id number]
[2019-06-30] MEDS: OXYCODONE/ACETAMINOPHEN 5-325 1 EACH TABLET PO PRN ×2 (16:56→21:30)
[2019-06-30] MEDS: CEFAZOLIN SOD 1 GM/NS 50ML 50 ML IV SCH (16:56)
[2019-06-30] MEDS: CARISOPRODOL 350 MG TAB PO PRN ×2 (16:56→21:30)
[2019-06-30] MEDS ORDERED: KETAMINE HCL INJ 50 MG/ML 10 ML VIAL ONE (18:49)
[2019-06-30] MEDS ORDERED: MIDAZOLAM HCL 2 MG/2 ML VIAL ONE (18:49)
[2019-06-30] MEDS ORDERED: PROPOFOL IV EMULSION 10 MG/ML 20 ML VIAL ONE (19:07)
[2019-06-30] MEDS ORDERED: SEVOFLURANE INHAL SOLN 250 ML PEN BTL ONE (19:07)
[2019-06-30] MEDS ORDERED: ROCURONIUM BROMIDE 10 MG/ML 5ML VIAL ONE (19:07)
[2019-06-30] MEDS ORDERED: LIDOCAINE HCL 2% LOCAL INJ 5 ML SDV VIAL INJ ONE (19:07)
[2019-06-30] MEDS ORDERED: DEXAMETHASONE SOD PHOS INJ 4 MG/ML VIAL ONE (19:07)
[2019-06-30] MEDS ORDERED: LIDOCAINE HCL 2% JELLY 5 ML TUBE ONE (19:07)
[2019-06-30] MEDS ORDERED: ONDANSETRON HCL INJ 2MG/ML 2ML 2 MG/ML VIAL ONE (19:07)
--- NOTE | 2019-06-30 19:15 | NUR ---
received report, pt [id number], resting in bed. stable condition. no needs voiced at this time. no distress observed. bed locked and in lowest position, call light within easy reach. will continue to monitor.
[2019-06-30 20:00] VITALS: BP 97/61
--- NOTE | 2019-06-30 21:27 | NUR ---
administered prn pain medication, see emar.
[2019-06-30 21:31] VITALS: BP 97/61
[2019-07-01] VITALS: BP 98/63
[2019-07-01] MEDS: CEFAZOLIN SOD 1 GM/NS 50ML 50 ML IV SCH ×2 (01:00→07:51)
[2019-07-01] MEDS: OXYCODONE/ACETAMINOPHEN 5-325 1 EACH TABLET PO PRN ×3 (01:00→13:22)
[2019-07-01] MEDS: CARISOPRODOL 350 MG TAB PO PRN ×2 (01:00→07:52)
--- NOTE | 2019-07-01 01:00 | NUR ---
administered prn medication for pain, see emar.
[2019-07-01] MEDS: KCL 20MEQ/.9 SOD CHL 1,000 ML IV SCH ×2 (02:03→09:12)
--- NOTE | 2019-07-01 02:35 | NUR ---
administered prn IV pain medication, see emar.
[2019-07-01] MEDS ORDERED: THYROID 60 MG TAB PO SCH (06:00)
--- NOTE | 2019-07-01 07:00 | NUR ---
BEDSIDE SHIFT REPORT RECEIVED FROM NIGHT RN. PT DENIES NEEDS AT THIS TIME.
[2019-07-01 07:25] VITALS: BP 107/71
[2019-07-01 07:46] VITALS: BP 114/54
[2019-07-01 08:00] VITALS: BP 114/54
--- NOTE | 2019-07-01 08:09 | Diagnostic Imaging Report ---
Cervical spine, 2 views Clinical indication: Status post surgery Comparison: No cervical spine radiograph comparisons available for review Findings: AP and lateral views of the cervical spine were obtained. Patient is status post C6-C7 discectomy with anterior fusion. Alignment is anatomic. There is mild operative prevertebral soft tissue fullness. Impression: Status post C6-C7 ACDF. Signed by: Glen Ernandez MD on 07/01/2019 8:05 AM
[2019-07-01 12:37] VITALS: BP 129/63
[2019-07-01 12:38] VITALS: BP 111/74
[2019-07-01] MEDS ORDERED: NORCO 7.5-3251 EACH PO (13:50)
== END 2019-07-01 15:25 | disposition home or self-care (01) ==
LOC: OR 05:13 → PACU V 09:14 → IMCU 10:03
PROVIDERS: ADMIT Neurological Surgery; ATTEND Neurological Surgery
DX: M50.123 Cervical disc disorder at C6-C7 level with radiculopathy (principal); M50.023 Cervical disc disorder at C6-C7 level with myelopathy; Z01.810 Encounter for preprocedural cardiovascular examination; Z01.812 Encounter for preprocedural laboratory examination; Z01.811 Encounter for preprocedural respiratory examination; E03.9 Hypothyroidism, unspecified; K21.9 Gastro-esophageal reflux disease without esophagitis; K44.9 Diaphragmatic hernia without obstruction or gangrene; R31.9 Hematuria, unspecified; R51 Headache; R41.3 Other amnesia; R12 Heartburn; Z88.5 Allergy status to narcotic agent
CPT/HCPCS: 20931; 22551; 22845; 36415 ×2; 71046; 72040; 80048 ×2; 85025; 85610; 85730; 86850; 86900; 88304; 93005; G0378 ×2; J0131; J0690 ×2; J1100; J1170; J2001 ×2; J2250; J2405 ×2; J2704; J2765; J3010; 77003

== ENCOUNTER 2022-09-08 20:34 | Emergency (ER) | payer OTHER, MEDICARE ==
[~2022-09-08] VITALS: Ht 160 cm; Wt 66.2 kg
== END 2022-09-08 21:43 | disposition home or self-care (01) ==
LOC: ER 20:47
DX: R51.9 Headache, unspecified (principal); G91.2 (Idiopathic) normal pressure hydrocephalus; M54.2 Cervicalgia; I10 Essential (primary) hypertension; E03.9 Hypothyroidism, unspecified
CPT/HCPCS: 99282